=== PATIENT | female | born 1950 | race Caucasian/White ===

== ENCOUNTER 2016-10-01 08:45 | Outpatient (RCR) | payer MEDICARE, BC ==
[~2016-10-01 08:45] MED LIST: ASPIRIN E.C. 8181 MG PO; CALTRATE 600 +1 TAB PO; NEURONTIN300 MG PO; NEXIUM 40MG40 MG PO; PRINIVIL20 MG PO; TRIAMTERENE/HCT1 TAB PO; VYTORIN 10 MG-41 TAB PO; ZETIA 10MG TAB10 MG PO
== END 2016-10-01 10:18 | disposition home or self-care (01) ==
LOC: MKS.ESL.PT 08:45
DX: Z47.89 Encounter for other orthopedic aftercare (principal); Z96.652 Presence of left artificial knee joint
CPT/HCPCS: G0283-GP; G8978-GP; G8979-GP; G8980-GP

== ENCOUNTER → 2017-06-10 | Outpatient (CLI) | payer MEDICARE, BC | LOC: MC.RAD 07:20 | DX: Z12.31 Encounter for screening mammogram for malignant neoplasm of breast (principal) ==

== ENCOUNTER → 2018-06-29 | Outpatient (CLI) | payer MEDICARE, BC | LOC: MC.RAD 07:35 | DX: Z12.31 Encounter for screening mammogram for malignant neoplasm of breast (principal) ==

== ENCOUNTER → 2019-07-02 | Outpatient (CLI) | payer MEDICARE, BC | LOC: MC.RAD 07:27 | DX: Z12.31 Encounter for screening mammogram for malignant neoplasm of breast (principal) ==

== ENCOUNTER → 2020-06-19 | Outpatient (CLI) | payer MEDICARE, BC | LOC: COL.RAD 11:49 | DX: N18.30 Chronic kidney disease, stage 3 unspecified (principal) ==

== ENCOUNTER → 2020-07-03 | Outpatient (CLI) | payer MEDICARE, BC | LOC: MC.RAD 08:30 | DX: Z12.31 Encounter for screening mammogram for malignant neoplasm of breast (principal) ==

== ENCOUNTER → 2020-09-29 | Outpatient (CLI) | payer MEDICARE, BC | LOC: MC.RAD 08:45 | DX: N60.42 Mammary duct ectasia of left breast (principal); N63.20 Unspecified lump in the left breast, unspecified quadrant ==